=== PATIENT | male | born 1970 | race Caucasian/White ===

== ENCOUNTER 2016-05-26 08:54 | Emergency (ER) | payer BC ==
[2016-05-26] MEDS ORDERED: Ondansetron INJ* 2 MG/ML VIAL IV ONE (09:10)
--- NOTE | 2016-05-26 10:09 | RAD ---
Indication: Cough, fever. 2 views of the chest including dual energy PA views demonstrate no mediastinal shift. Heart is of normal size and configuration. Nodular density is noted in the left midlung field which may represent some scarring however follow-up exam is suggested. No pleural fluid is identified. IMPRESSION: Linear density in the left midlung field likely representing some scarring. No definite pneumonia is noted.
--- NOTE | 2016-05-26 10:17 | ED ---
Influenza-Like Illness - HPI Summary HPI Summary: 45 F w/ no PMH presents with n/v/d and generalized abdominal pain for 3 days. He admits to a cough, fever, generalized body aches. Has not taken anything. no one else is sick . Denies any chest pain or SOB. - History of Current Complaint Chief Complaint: EDNauseaVomitDiarrh Time Seen by Provider: 05/26/16 09:09 - Allergy/Home Medications Allergies/Adverse Reactions: Allergies Allergy/AdvReac Type Severity Reaction Status Date / Time No Known Allergies Allergy Verified 05/26/16 09:03 PMH/Surg Hx/FS Hx/Imm Hx Endocrine/Hematology History: Denies: Hx Diabetes Cardiovascular History: Denies: Hx Hypertension, Hx Pacemaker/ICD GI History: Reports: Other GI Disorders History: Denies: Hx Dialysis, Hx Renal Disease Musculoskeletal History: Reports: Hx Arthritis, Hx Back Problems Sensory History: Denies: Hx Hearing Aid Psychiatric History: Denies: Hx Panic Disorder Infectious Disease History: No Infectious Disease History: Denies: Traveled Outside the [place] in Last 30 Days - Family History Known Family History: Negative: Cardiac Disease - Social History Alcohol Use: Daily Alcohol Amount: 2 beers/day on average Substance Use Type: Reports: None Smoking Status (MU): Never Smoked Tobacco Review of Systems Positive: Fever Negative: Chest Pain Negative: Shortness Of Breath Positive: Abdominal Pain, Vomiting, Diarrhea, Nausea Negative: dysuria All Other Systems Reviewed And Are Negative: Yes Physical Exam Triage Information Reviewed: Yes Vital Signs On Initial Exam: Initial Vitals Temp Pulse Resp BP Pulse Ox 98.3 F 101 18 132/90 100 05/26/16 08:57 05/26/16 08:57 05/26/16 08:57 05/26/16 08:57 05/26/16 08:57 Vital Signs Reviewed: Yes Appearance: Positive: Ill-Appearing Skin: Positive: Warm, Dry Head/Face: Positive: Normal Head/Face Inspection Eyes: Positive: Normal, Conjunctiva Clear ENT: Positive: Normal ENT inspection, Pharynx normal, Nasal congestion, TMs normal Neck: Positive: Supple, Nontender, No Lymphadenopathy Respiratory/Lung Sounds: Positive: Clear to Auscultation, Breath Sounds Present Cardiovascular: Positive: Normal, RRR Abdomen Description: Positive: Nontender, Soft Bowel Sounds: Positive: Present Diagnostics - Vital Signs Vital Signs Temp Pulse Resp BP Pulse Ox 05/26/16 08:57 98.3 F 101 18 132/90 100 - Laboratory Result Diagrams: 05/26/16 10:15 05/26/16 10:15 Lab Statement: Any lab studies that have been ordered have been reviewed, and results considered in the medical decision making process. - Radiology chest Xray Interpretation: No Acute Changes Radiology Interpretation Completed By: Radiologist Flu Symptom Course/Dx - Course Course Of Treatment: 45M presents with flu like symptoms, no fever currently, PE normal, labs normal, feeling better after fluid, flu and strept normal, chest xray normal, will give zofran to go, patient is feeling better and would like to go home, patient agrees with plan - Diagnoses Differential Diagnosis/HQI/PQRI: Positive: Bronchitis, Influenza, Upper Respiratory Infection, Other - gastroenteritis Provider Diagnoses: Nausea and vomiting, Cough Discharge - Discharge Plan Condition: Good Disposition: HOME Prescriptions: Ondansetron ODT TAB* [Zofran Odt TAB*] 4 mg PO Q6H PRN #16 tab.odt PRN Reason: Nausea Patient Education Materials: Acute Nausea and Vomiting (ED) Referrals: Kaley Tijerina MD [Primary Care Provider] - Additional Instructions: Can take Zofran every 6 hours as needed for nausea Drink small amounts of fluid as tolerated When able to eat follow BRAT diet: Bananas, rice, applesauce, toast Take ibuprofen or Tylenol for pain as needed every 6 hours Follow up with primary within 5 days Return to ED if develop fever that does not respond to Tylenol or ibuprofen, severe abdominal pain, or any new or worsening symptoms
[2016-05-26] MEDS: NS 0.9% 1000 ML* 2,000 ML IV ONE ×2 (10:20→11:03)
[2016-05-26 10:36] LABS: Hematocrit 47 % (42-52); Hemoglobin 16.2 g/dl (14.0-18.0); Mean Corpuscular HGB Conc 34 g/dl (31-36); Mean Corpuscular Hemoglobin 32 pg (27-31); Mean Corpuscular Volume 93 fL (80-94); Mean Platelet Volume 9 um3 (7.4-10.4); Red Blood Count 5.11 10^6/ul (4.0-5.4); Red Cell Distribution Width 13 % (10.5-15); White Blood Count 5.2 10^3/ul (3.5-10.8)
[2016-05-26 10:51] LABS: Albumin 4.2 g/dL (3.2-5.2); BUN/Creatinine Ratio 13.2 (8-20); Calcium 9.5 mg/dL (8.6-10.3); EGFR African American 163.7 (>60); EGFR Non-African American 127.3 (>60); Potassium 3.6 mmol/L (3.5-5.0); Total Bilirubin 3.2 mg/dL (0.2-1.0); Total Protein 8.2 g/dL (6.4-8.9)
[2016-05-26 11:28] VITALS: BP 143/80
== END 2016-05-26 11:36 | disposition home or self-care (01) ==
LOC: ED 08:54
DX: R11.2 Nausea with vomiting, unspecified (principal); R05 Cough
CPT/HCPCS: 36415; 71020; 80053; 83605; 85025; 86141; 87502; 87651; 96360; 96374; 99283; J2405

== ENCOUNTER 2016-11-20 08:40 | Emergency (ER) | payer BC ==
--- NOTE | 2016-11-20 10:42 | RAD ---
Indication: Shortness of breath, chest pain. Single frontal view of the chest performed at 1018 hours was reviewed. Comparison is made with previous exam dated June 25, 2016. No mediastinal shift is noted. Heart is of normal size and configuration. Lung sher appear clear. IMPRESSION: NO ACTIVE CARDIOPULMONARY DISEASE IS NOTED.
[2016-11-20 10:50] LABS: Albumin 4.2 g/dL (3.2-5.2); Calcium 9.4 mg/dL (8.6-10.3); EGFR African American 95.5 (>60); EGFR Non-African American 74.3 (>60); Globulin 3.5 g/dL (2-4); Potassium 5.4 mmol/L (3.5-5.0); Total Bilirubin 2.7 mg/dL (0.2-1.0); Total Protein 7.7 g/dL (6.4-8.9); Troponin I 0.01 ng/mL (<0.04)
[2016-11-20 11:03] LABS: BUN/Creatinine Ratio 6.5 (8-20)
[2016-11-20 11:26] LABS: Hematocrit 47 % (42-52); Hemoglobin 16.7 g/dl (14.0-18.0); Mean Corpuscular HGB Conc 36 g/dl (31-36); Mean Corpuscular Hemoglobin 34 pg (27-31); Mean Corpuscular Volume 95 fL (80-94); Mean Platelet Volume 11 um3 (7.4-10.4); Red Blood Count 4.93 10^6/ul (4.0-5.4); Red Cell Distribution Width 13 % (10.5-15); White Blood Count 6.5 10^3/ul (3.5-10.8)
[2016-11-20 11:34] LABS: Comments Flag Yes
[2016-11-20 11:35] LABS: Add Diff/Slide Review? Slide Review Added
--- NOTE | 2016-11-20 13:35 | RAD ---
Indication: Chest pain and elevated liver function tests. Comparison: No relevant prior exams available on the [facility] PACS for comparison. Technique: RIGHT upper quadrant ultrasound. Report: Appropriate direction flow documented in the portal and hepatic veins. 19 cm liver is severely increased in echogenicity. Negative for focal hepatic lesions. Negative for intrahepatic biliary dilatation. 4 mm common bile duct. Adequately distended gallbladder with normal 2 mm wall is without pathologic finding. Negative for sonographic Woods's sign. The pancreatic tail is partially obscured due to bowel gas with the visualized pancreas is echogenic favoring partial fatty replacement. Negative for ascites. 11.1 x 4.5 x 5.3 cm RIGHT kidney is unremarkable. IMPRESSION: 1. Mildly enlarged liver with hepatosteatosis. 2. No evidence for gallbladder pathology.
[2016-11-20 13:42] LABS: BUN/Creatinine Ratio 7.7 (8-20); Calcium 9.1 mg/dL (8.6-10.3); EGFR African American 116.4 (>60); EGFR Non-African American 90.5 (>60); Potassium 4.8 mmol/L (3.5-5.0)
[2016-11-20 14:16] VITALS: BP 128/79
--- NOTE | 2016-11-20 22:06 | ED ---
Armani Mon SooYoung, scribed for Radha Esquivel MD on 11/20/16 at 1146 . Shortness of Breath - HPI Summary HPI Summary: A 46 y/o M arriving by car presents with dyspnea and CP onset last night, worsening minutes LOW VOLTAGE ELECTRICIAN. Per , pt complained of SOB, CP during the night. They got the kids ready for school this AM, then was driving pt to ED when he suddenly worsened, stopped the car and called 911, who stated that they were so close to continue on to [facility]. Associated sx: shaking, L-side numbness - pt states it feels that his left side "is ," ecchymosis on RLE from a fall occurring 5 days ago. No PMHx: asthma, anxiety, panic attacks. Pt denies daily meds. Non-smoker. Daily ETOH. No drug use. FHx: HTN, DM. - History of Current Complaint Chief Complaint: EDShortnessOfBreath Hx Obtained From: Patient, Family/Wallpaper [employer]anger - Onset/Duration: Gradual Onset, Lasting Hours, Still Present Timing: Constant Current Severity: Severe Dyspnea At: Rest Aggrevating Factors: Nothing Alleviating Factors: Nothing Associated Signs & Symptoms: Chest Pain Unrelated to Cough - Risk Factors Pulmonary Embolism: Smoking Cardiac: Smoking Tuberculosis: Smoking - Allergy/Home Medications Allergies/Adverse Reactions: Allergies Allergy/AdvReac Type Severity Reaction Status Date / Time No Known Allergies Allergy Verified 05/26/16 09:03 PMH/Surg Hx/FS Hx/Imm Hx Previously Healthy: No Endocrine/Hematology History: Denies: Hx Diabetes Cardiovascular History: Denies: Hx Hypertension, Hx Pacemaker/ICD Respiratory History: Denies: Hx Asthma History: Denies: Hx Dialysis, Hx Renal Disease Musculoskeletal History: Reports: Hx Arthritis, Hx Back Problems Sensory History: Denies: Hx Hearing Aid Psychiatric History: Denies: Hx Panic Disorder - Surgical History Surgery Procedure, Year, and Place: none Infectious Disease History: No Infectious Disease History: Denies: Traveled Outside the [place] in Last 30 Days - Family History Known Family History: Positive: Hypertension, Diabetes Negative: Cardiac Disease - Social History Occupation: Unemployed Lives: With Family Alcohol Use: Daily Alcohol Amount: 6 beers/day on average Hx Substance Use: No Substance Use Type: Reports: None Hx Tobacco Use: No Smoking Status (MU): Never Smoked Tobacco Review of Systems Negative: Fever Positive: Chest Pain Positive: Shortness Of Breath - dyspnea Gastrointestinal: Negative Genitourinary: Negative Positive: Bruising - RLE Neurological: Other - pos: diffuse shaking Positive: Numbness - L-sided Positive: Anxious All Other Systems Reviewed And Are Negative: Yes Physical Exam Triage Information Reviewed: Yes Vital Signs On Initial Exam: Initial Vitals Temp Pulse Resp BP Pulse Ox 98.2 F 103 40 115/79 100 11/20/16 08:44 11/20/16 08:44 11/20/16 08:44 11/20/16 08:44 11/20/16 08:44 Vital Signs Reviewed: Yes Appearance: Positive: No Pain Distress, Well-Nourished, Ill-Appearing - hyperventilating Skin: Positive: Warm, Skin Color Reflects Adequate Perfusion Head/Face: Positive: Normal Head/Face Inspection Eyes: Positive: Conjunctiva Clear ENT: Positive: Normal ENT inspection Neck: Positive: Supple, Nontender, No Lymphadenopathy Respiratory/Lung Sounds: Positive: Clear to Auscultation, Breath Sounds Present , Unable to speak in full sentences, Other - hyperventilating. Negative: Wheezes Cardiovascular: Positive: RRR, Other - pulses normal, brisk capillary refill. Negative: Murmur Abdomen Description: Positive: Nontender, No Organomegaly, Soft. Negative: Distended, Guarding Musculoskeletal: Positive: Strength/ROM Intact. Negative: Deysi Sign Left, Deysi Sign Right, Edema Left, Edema Right Neurological: Positive: Sensory/Motor Intact, Alert, Oriented to Person Place, Time, Facial Symmetry, Speech Normal Psychiatric: Positive: Anxious - Padmini Coma Scale Coma Scale Total: 15 Diagnostics - Vital Signs Vital Signs Temp Pulse Resp BP Pulse Ox 11/20/16 08:44 98.2 F 103 40 115/79 100 - Laboratory Lab Results: Lab Results 11/20/16 11/20/16 11/20/16 Range/Units 08:46 08:46 08:46 WBC 6.5 (3.5-10.8) 10^3/ul RBC 4.93 (4.0-5.4) 10^6/ul Hgb 16.7 (14.0-18.0) g/dl Hct 47 (42-52) % MCV 95 H (80-94) fL MCH 34 H (27-31) pg MCHC 36 (31-36) g/dl RDW 13 (10.5-15) % Plt Count 258 (150-450) 10^3/ul MPV 11 H (7.4-10.4) um3 Neut % (Auto) 54.6 (38-83) % Lymph % (Auto) 32.4 (25-47) % [place] % (Auto) 11.0 H (1-9) % Eos % (Auto) 0.6 (0-6) % Baso % (Auto) 1.4 (0-2) % Absolute Neuts (auto) 3.5 (1.5-7.7) 10^3/ul Absolute Lymphs (auto) 2.1 (1.0-4.8) 10^3/ul Absolute Monos (auto) 0.7 (0-0.8) 10^3/ul Absolute Eos (auto) 0 (0-0.6) 10^3/ul Absolute Basos (auto) 0.1 (0-0.2) 10^3/ul Absolute Nucleated RBC 0.05 10^3/ul Nucleated RBC % 0.8 INR (Anticoag Therapy) 0.84 L (0.89-1.11) APTT 34.2 (26.0-36.3) seconds D-Dimer, Quantitative < 200 (Less Than 230) ng/mL Sodium 124 L (133-145) mmol/L Potassium 5.4 H (3.5-5.0) mmol/L Chloride 92 L (101-111) mmol/L Carbon Dioxide 15 L (22-32) mmol/L Anion Gap 17 H (2-11) mmol/L BUN 7 (6-24) mg/dL Creatinine 1.08 (0.67-1.17) mg/dL Est GFR ( Amer) 95.5 (>60) Est GFR (Non-Af Amer) 74.3 (>60) BUN/Creatinine Ratio 6.5 L (8-20) Glucose 119 H (70-100) mg/dL Calcium 9.4 (8.6-10.3) mg/dL Total Bilirubin 2.70 H (0.2-1.0) mg/dL AST 163 H (13-39) U/L ALT 25 (7-52) U/L Alkaline Phosphatase 99 (34-104) U/L Total Creatine Kinase 349 H (10-223) U/L CK-MB (CK-2) 4.7 (0.6-6.3) ng/mL Troponin I 0.01 (<0.04) ng/mL B-Natriuretic Peptide ( - 100) pg/mL Total Protein 7.7 (6.4-8.9) g/dL Albumin 4.2 (3.2-5.2) g/dL Globulin 3.5 (2-4) g/dL Albumin/Globulin Ratio 1.2 (1-3) 11/20/16 11/20/16 Range/Units 08:46 12:30 WBC (3.5-10.8) 10^3/ul RBC (4.0-5.4) 10^6/ul Hgb (14.0-18.0) g/dl Hct (42-52) % MCV (80-94) fL MCH (27-31) pg MCHC (31-36) g/dl RDW (10.5-15) % Plt Count (150-450) 10^3/ul MPV (7.4-10.4) um3 Neut % (Auto) (38-83) % Lymph % (Auto) (25-47) % [place] % (Auto) (1-9) % Eos % (Auto) (0-6) % Baso % (Auto) (0-2) % Absolute Neuts (auto) (1.5-7.7) 10^3/ul Absolute Lymphs (auto) (1.0-4.8) 10^3/ul Absolute Monos (auto) (0-0.8) 10^3/ul Absolute Eos (auto) (0-0.6) 10^3/ul Absolute Basos (auto) (0-0.2) 10^3/ul Absolute Nucleated RBC 10^3/ul Nucleated RBC % INR (Anticoag Therapy) (0.89-1.11) APTT (26.0-36.3) seconds D-Dimer, Quantitative (Less Than 230) ng/mL Sodium 127 L (133-145) mmol/L Potassium 4.8 (3.5-5.0) mmol/L Chloride 93 L (101-111) mmol/L Carbon Dioxide 23 (22-32) mmol/L Anion Gap 11 (2-11) mmol/L BUN 7 (6-24) mg/dL Creatinine 0.91 (0.67-1.17) mg/dL Est GFR ( Amer) 116.4 (>60) Est GFR (Non-Af Amer) 90.5 (>60) BUN/Creatinine Ratio 7.7 L (8-20) Glucose 104 H (70-100) mg/dL Calcium 9.1 (8.6-10.3) mg/dL Total Bilirubin (0.2-1.0) mg/dL AST (13-39) U/L ALT (7-52) U/L Alkaline Phosphatase (34-104) U/L Total Creatine Kinase (10-223) U/L CK-MB (CK-2) (0.6-6.3) ng/mL Troponin I (<0.04) ng/mL B-Natriuretic Peptide 21 ( - 100) pg/mL Total Protein (6.4-8.9) g/dL Albumin (3.2-5.2) g/dL Globulin (2-4) g/dL Albumin/Globulin Ratio (1-3) Result Diagrams: 11/20/16 08:46 11/20/16 12:30 Lab Statement: Any lab studies that have been ordered have been reviewed, and results considered in the medical decision making process. - Radiology CXR Xray Interpretation: No Acute Changes - IMPRESSION: No active cardiopulmonary dz is noted. Radiology Interpretation Completed By: Radiologist - Ultrasound No standard instances Ultrasound Interpretation: Positive (See Comments) - GALLBLADDER U/S, IMPRESSION : 1. Mildly enlarged liver with hepatosteatosis. 2. No evidence for gallbladder pathology. Ultrasound Interpretation Completed By: Radiologist - EKG 0842 Cardiac Rate: Tachycardia - 107 bpm EKG Rhythm: Sinus Tachycardia EKG Interpretation: nml AV, prolonged IVCD, RBBB, nml QTC, neg axis -30. 1052 Cardiac Rate: NL - 108 bpm EKG Rhythm: Sinus Tachycardia EKG Interpretation: nml AV, borderline prolonged IVCD w/ incomplete RBBB, nml QTC, neg axis -5 EKG Comparison: No Significant Change - from EKG performed today at 0842 Re-Evaluation - Re-Evaluation 1 Re-Evaluation Time: 14:11 Change: Improved Comment: Discussing results with pt. Pt has no pain, no SOB. Discussed reducing ETOH intake due to elevated bilirubin and LFT's and fatty liver with hepatomegaly. Pt voiced understanding. Course/Dx - Course Course Of Treatment: Allergies noted. Medications reviewed. Normal BP reading and no follow-up instructions required. Pt is a 46 y/o M presenting with dyspnea and CP initial onset last night, worsening minutes LOW VOLTAGE ELECTRICIAN. was driving pt to ED this AM when he suddenly worsened, called 911, who stated that they were so close to continue on to [facility]. Associated sx: shaking, L-side numbness - pt states it feels that his left side "is ," ecchymosis on RLE from a fall occurring 5 days ago. No PMHx: asthma, anxiety, panic attacks. Pt denies daily meds. Non-smoker. Daily ETOH. No drug use. FHx: HTN, DM. Lab results show trop is 0.01. Ddimer is WNL. CXR is nml. EKG is sinus tachy at 107 bpm, with nml AV, prolonged IVCD, RBBB, nml QTC, neg axis -30. Gallbladder U /S shows "1. Mildly enlarged liver with hepatosteatosis. 2. No evidence for gallbladder pathology. " Second EKG is sinus tachy at 108 bpm, nml AV, borderline prolonged IVCD with incomplete RBBB, nml QTC, neg axis -5, no acute changes, no significant changes from prior EKG performed today. Will D/C home, f/u with PCP. - Diagnoses Differential Diagnosis/HQI/PQRI: Positive: VT, Pneumonia, Pulmonary Embolism, Other - hyperventilation Provider Diagnoses: Hyperventilation, Hyponatremia, Hepatomegaly, Hepatic steatosis, Elevated bilirubin, Chest pain - Critical Care Time Critical Care Time: 30-74 min - 30 minutes Discharge - Discharge Plan Condition: Stable Disposition: HOME Prescriptions: LORazepam TAB(*) [Ativan 0.5 MG TAB (*)] 0.5 mg PO Q8H PRN #9 tab MDD 3 PRN Reason: Agitation Patient Education Materials: Hyperventilation (ED), Hyponatremia (ED), Non- Alcoholic Fatty Liver Disease (ED), Jaundice (ED) Referrals: Kaley Tijerina MD [Primary Care Provider] - 3 Days Additional Instructions: Your liver is enlarged and has fatty changes and your liver function tests are abnormal. You will need to stop all alcohol. Also do not take acetaminophen. The tests today did not show any heart attack or any blood clot to the lung. Your serum sodium is also low. We have given you a copy of all of your labs and the ultrasound. You need to follow up with your doctor as soon as possible for continued evaluation of all of these abnormalities, but you do not have an emergency condition at this time. Return to the ER if you have any new or worsening symptoms. The documentation as recorded by the Armani jimenez SooYoung accurately reflects the service I personally performed and the decisions made by me, Radha Esquivel MD.
== END 2016-11-20 14:18 | disposition home or self-care (01) ==
LOC: ED 08:40
DX: R07.9 Chest pain, unspecified (principal); R06.4 Hyperventilation; E87.1 Hypo-osmolality and hyponatremia; R16.0 Hepatomegaly, not elsewhere classified; R06.00 Dyspnea, unspecified; F41.9 Anxiety disorder, unspecified; N28.89 Other specified disorders of kidney and ureter
CPT/HCPCS: 36415; 71010; 76705; 80048; 80053; 82550; 82553; 83880; 84484; 85025; 85379; 85610; 85730; 93005; 99282

== ENCOUNTER 2018-10-03 13:59 | Emergency (ER) | payer BC ==
[2018-10-03 14:11] VITALS: BP 152/109
[2018-10-03] MEDS ORDERED: Ketorolac INJ* 30 MG/ML 1 ML VIAL IM ONE (14:15)
--- NOTE | 2018-10-03 14:21 | UC ---
Lower Extremity/Ankle HPI - HPI Summary HPI Summary: 47-year-old male who injured his left foot last evening as he was coming down the stairs he is not 100% sure how he injured it but he has bruising and pain to the dorsum of his left foot with pain to the fifth fourth and third toes. The fourth toe is obviously it or dislocated or fractured. - History of Current Complaint Chief Complaint: UCLowerExtremity Stated Complaint: LT FOOT INJURY Time Seen by Provider: 10/03/18 14:13 Hx Obtained From: Patient Onset/Duration: Sudden Onset Severity Initially: Moderate Severity Currently: Moderate Pain Intensity: 9 Aggravating Factor(s): Standing, Ambulation Alleviating Factor(s): Nothing Able to Bear Weight: No - able to partially bear weight on his heel but not on his entire foot. - Allergies/Home Medications Allergies/Adverse Reactions: Allergies Allergy/AdvReac Type Severity Reaction Status Date / Time No Known Allergies Allergy Verified 10/03/18 14:11 PMH/Surg Hx/FS Hx/Imm Hx Previously Healthy: Yes - Surgical History Surgical History: None Surgery Procedure, Year, and Place: none - Family History Known Family History: Positive: Hypertension, Diabetes Negative: Cardiac Disease - Social History Alcohol Use: Occasionally Alcohol Amount: 6 beers/day on average Substance Use Type: None Smoking Status (MU): Never Smoked Tobacco Review of Systems All Other Systems Reviewed And Are Negative: Yes Skin: Positive: Bruising - Bruising to dorsum of left foot as well as 3 of his toes with mild swelling. Motor: Positive: Decreased ROM - Unable to put for extensor range of motion. Neurovascular: Positive: Decreased Sensation - Decreased sensation to the second , third, fourth toes. Musculoskeletal: Positive: Decreased ROM, Other: - Fourth toe is angulated Neurological: Positive: Numbness - Numbness to 2nd, 3rd and 4th toes Is Patient Immunocompromised?: No Physical Exam Triage Information Reviewed: Yes Appearance: Well-Appearing, Well-Nourished, Pain Distress Vital Signs: Initial Vital Signs Temp 98.2 F 10/03/18 14:05 Pulse 104 10/03/18 14:05 Resp 18 10/03/18 14:05 BP 152/109 10/03/18 14:05 Pulse Ox 97 10/03/18 14:05 Vital Signs Reviewed: Yes Musculoskeletal: Positive: ROM Limited @ - Patient states he cannot put his second, third or fourth toes range of motion because of pain. The fourth toe is to flank related. Neurological: Positive: Alert Skin: Positive: Other - Bruise to the dorsum of left foot. Lower Extremity Course/Dx - Course Course Of Treatment: Left foot: FINDINGS: BONE DENSITY: Normal. BONES: There are angulated fractures of the bases of the proximal phalanges of the fourth and fifth digits. JOINTS: There is no arthropathy. ALIGNMENT: There is no dislocation. SOFT TISSUES: Unremarkable. OTHER FINDINGS: None. IMPRESSION: ANGULATED FRACTURES OF THE PROXIMAL PHALANGES OF THE FOURTH AND FIFTH DIGITS The patient was given Toradol 30 mg IM here for pain. I was able to speak with Dr. Hilton's office (orthopedist) and they will be able to see him immediately from here. The patient was discharged via wheelchair to his 's care to drive to the office immediately. - Differential Dx/Diagnosis Provider Diagnosis: Fracture of multiple toes Discharge - Sign-Out/Discharge Documenting (check all that apply): Patient Departure All imaging exams completed and their final reports reviewed: Yes - Discharge Plan Condition: Fair Disposition: HOME Referrals: Elza Hilton MD [Medical Doctor] - (Go directly to her office now) Lisa Yeboah NP [Primary Care Provider] - Additional Instructions: Go directly to Dr. Hilton's office from here. - Billing Disposition and Condition Condition: FAIR Disposition: Home
== END 2018-10-03 15:01 | disposition home or self-care (01) ==
LOC: UCEAST 13:59
DX: S92.512A Displaced fracture of proximal phalanx of left lesser toe(s), initial encounter for closed fracture (principal); W10.9XXA Fall (on) (from) unspecified stairs and steps, initial encounter; Y92.9 Unspecified place or not applicable
CPT/HCPCS: 96372; 99211; G0463; J1885

== ENCOUNTER 2019-06-13 10:38 | Emergency (ER) | payer BC ==
[2019-06-13 10:47] VITALS: BP 132/93
--- NOTE | 2019-06-13 11:16 | UC ---
Knee Pain HPI - HPI Summary HPI Summary: 48-year-old male presents with complaints of left knee pain. States 2 days ago he slipped on the ice and fell directly onto his left knee. Complains of pain, swelling, and bruising to the medial aspect of the knee. Reports he was able to walk and bear weight after the injury however pain has progressively worsened over the last 2 days and he is unable to tolerate much weight on the knee at all at this point. Pain worsens with full extension. No alleviating factors however has not taken any [id number] analgesics. Denies any numbness or tingling. - History of Current Complaint Chief Complaint: UCLowerExtremity Stated Complaint: LEFT KNEE INJURY Time Seen by Provider: 06/13/19 10:51 Hx Obtained From: Patient Pain Intensity: 10 - Allergies/Home Medications Allergies/Adverse Reactions: Allergies Allergy/AdvReac Type Severity Reaction Status Date / Time No Known Allergies Allergy Verified 06/13/19 10:48 Home Medications: Home Medications NK [No Home Medications Reported] 07/14/18 [History Confirmed 06/13/19] PMH/Surg Hx/FS Hx/Imm Hx Previously Healthy: Yes - Denies significant PMH - Surgical History Surgical History: None Surgery Procedure, Year, and Place: none - Family History Known Family History: Positive: Hypertension, Diabetes - Social History Occupation: Employed Full-time Lives: With Family Alcohol Use: Occasionally Alcohol Amount: 6 beers/day on average Substance Use Type: None Smoking Status (MU): Never Smoked Tobacco Review of Systems All Other Systems Reviewed And Are Negative: Yes Constitutional: Positive: Negative Skin: Positive: Bruising Respiratory: Positive: Negative Cardiovascular: Positive: Negative Gastrointestinal: Positive: Negative Genitourinary: Positive: Negative Motor: Negative: Weakness Neurovascular: Negative: Decreased Sensation Musculoskeletal: Positive: Arthralgia - See HPI, Decreased ROM, Edema Neurological/Mental Status: Positive: Negative Is Patient Immunocompromised?: No Physical Exam - Summary Physical Exam Summary: GENERAL APPEARANCE: Well developed, well nourished, alert and cooperative. Patient appears uncomfortable but is in no acute distress. CARDIAC: Normal S1 and S2. No S3, S4 or murmurs. Rhythm is regular. There is no peripheral edema, cyanosis or pallor. Extremities are warm and well perfused. Capillary refill is less than 2 seconds. Peripheral pulses intact. LUNGS: Clear to auscultation without rales, rhonchi, wheezing or diminished breath sounds. ABDOMEN: Positive bowel sounds. Soft, nondistended, nontender. No guarding or rebound. No masses or hepatosplenomegally. MUSKULOSKELETAL: Normal muscular development. EXTREMITIES: Tenderness with moderate ecchymosis and edema to the medial aspect of the left knee. Unable to fully extend the knee due to pain. Circulation and sensation intact. SKIN: Skin normal color, texture and turgor with no lesions or eruptions. Triage Information Reviewed: Yes Vital Signs: Initial Vital Signs Temp 99.2 F 06/13/19 10:45 Pulse 110 06/13/19 10:45 Resp 20 06/13/19 10:45 BP 132/93 06/13/19 10:45 Pulse Ox 100 06/13/19 10:45 Vital Signs Reviewed: Yes Diagnostics - Radiology No standard instances Radiology Interpretation Completed By: Radiologist Summary of Radiographic Findings: Order Information: KNEE LEFT 4+ VWS INDICATION : Left knee injury. TECHNIQUE: 4 views of the left knee were obtained. FINDINGS: The bones are normal alignment. There is a joint effusion present. No fracture is seen. Joint spaces appear maintained. IMPRESSION: JOINT EFFUSION, NO FRACTURE IS SEEN. Knee Pain Course/Dx - Course Course Of Treatment: 48-year-old male presents with complaints of left knee pain. States 2 days ago he slipped on the ice and fell directly onto his left knee. Complains of pain, swelling, and bruising to the medial aspect of the knee. Reports he was able to walk and bear weight after the injury however pain has progressively worsened over the last 2 days and he is unable to tolerate much weight on the knee at all at this point. Pain worsens with full extension. No alleviating factors however has not taken any [id number] analgesics. Denies any numbness or tingling. Mildly hypertensive and tachycardic otherwise vital signs stable. Patient had tenderness with moderate ecchymosis and edema to the medial aspect of the left knee. He was unable to fully extend the knee due to pain. Circulation and sensation was intact. X-ray showed joint effusion without fracture. Patient was placed in an BISI wrap by the RN and provided crutches with instruction. Have recommended conservative treatment including OTC analgesics, RICE, and modified weight bearing. He is to follow up with orthopedic surgery in 3-5 days. Anticipatory guidance and warning symptoms reviewed with patient. Verbalizes understanding and agrees with POC. - Differential Dx/Diagnosis Differential Diagnosis/HQI/PQRI: Contusion, Fracture (Closed), Internal Derangement Of Knee, Sprain Provider Diagnosis: Left knee injury Discharge ED - Sign-Out/Discharge Documenting (check all that apply): Patient Departure All imaging exams completed and their final reports reviewed: Yes - Discharge Plan Condition: Stable Disposition: HOME Patient Education Materials: Knee Pain (ED) Referrals: Lisa Yeboah NP [Primary Care Provider] - Elza Hilton MD [Medical Doctor] - 3 Days (Call for appointment.) Additional Instructions: The x-ray performed in the clinic today showed no evidence of a fracture. Rest the knee as much as possible. You may walk and bear weight as tolerated. Use the crutches provided for support. Use the BISI wrap that was applied in the clinic or use a compression sleeve to help manage the swelling. Apply ice to the affected area for 15-20 minutes at least 4 times a day to help with the pain and swelling. Elevate the leg to help reduce swelling. Take acetaminophen (Tylenol) or ibuprofen (Advil, Motrin) according to directions as needed for pain. Follow up with orthopedic surgery in 3-5 days especially if symptoms do not improve. Call for appointment. Seek immediate medical attention if you have severe pain not managed with pain medication, you are unable to walk or bear any weight, develop numbness or tingling in the leg, foot, or toes, or have any worsening of symptoms. - Billing Disposition and Condition Condition: STABLE Disposition: Home
== END 2019-06-13 12:20 | disposition home or self-care (01) ==
LOC: UCEAST 10:38
DX: S89.92XA Unspecified injury of left lower leg, initial encounter (principal); M25.462 Effusion, left knee; W00.0XXA Fall on same level due to ice and snow, initial encounter; Y92.9 Unspecified place or not applicable
CPT/HCPCS: 99213; G0463

== ENCOUNTER 2022-03-22 13:14 | Inpatient (IN) ==
[2022-03-22 15:43] LABS: ABS Basophils 0.1 10^3/ul (0-0.2); ABS Eosinophils 0.1 10^3/ul (0-0.6); ABS Lymphocytes 0.6 10^3/ul (1.0-4.8); ABS Monocytes 0.4 10^3/ul (0-0.8); ABS Neutrophils 5.9 10^3/ul (1.5-7.7); Eosinophil % 1.8 %; Hematocrit 35 % (42-52); Hemoglobin 11.9 g/dL (14.0-18.0); Mean Corpuscular HGB Conc 34 g/dL (31-36); Mean Corpuscular Hemoglobin 32 pg (27-31); Mean Corpuscular Volume 95 fL (80-94); Mean Platelet Volume 8.7 fL (7.4-10.4); Nucleated Red Blood Cells % 0.1; Platelet Count 120 10^3/uL (150-450); Red Blood Count 3.68 10^6 /uL (4.18-5.48); Red Cell Distribution Width 16 % (10-15); White Blood Count 7.1 10^3/uL (3.5-10.8)
[2022-03-22 16:16] LABS: Albumin 3.1 g/dL (3.2-5.2); Calcium 8.2 mg/dL (8.6-10.3); Globulin 3.1 g/dL (2-4); Potassium 3.7 mmol/L (3.5-5.0); Total Protein 6.2 g/dL (6.4-8.9); eGFR CKD-EPI 99.4 (>60)
[2022-03-22 16:18] LABS: INR 1.08 (0.89-1.11)
[2022-03-22 16:40] LABS: Total Bilirubin 13.2 mg/dL (0.2-1.0)
[2022-03-22] MEDS ORDERED: Iohexol 350 (CONTRAST) 500 ML MDV IV ONE (16:47)
[2022-03-22 17:37] LABS: Direct Bilirubin 6.1 mg/dL (0.03-0.18); Indirect Bilirubin 7.1 mg/dL (0.3-1.0)
[2022-03-22] MEDS ORDERED: Thiamine 100 MG/ML 2 ml VIAL 500 MG in NS 0.9% 250 ml 250 ML IV ONE (18:16)
[2022-03-22] MEDS ORDERED: Potassium Chloride LIQUID 20 MEQ/15 ML LIQUID PO ONE (18:17)
[2022-03-22 18:36] LABS: Calcium 7.8 mg/dL (8.6-10.3); Potassium 3.6 mmol/L (3.5-5.0); eGFR CKD-EPI 103.3 (>60)
[2022-03-22] MEDS: cefTRIAXone 1 gm/50 mL D5W 1 GM/50 ML BAG IV SCH (18:41)
[2022-03-22 19:12] LABS: Magnesium 2.2 mg/dL (1.9-2.7)
[2022-03-22 19:15] LABS: Urine Chloride Concentration < 22 mmol/L; Urine Potassium Concentration 24.1 mmol/L; Urine Sodium Concentration < 18 mmol/L
[2022-03-22 19:27] LABS: Urine Specific Gravity > 1.060 (1.002-1.030)
[2022-03-22 19:28] LABS: Urine Appearance Clear; Urine Bacteria Absent (Absent); Urine Bilirubin Negative (Negative); Urine Blood 1+ (Negative); Urine Color Amber; Urine Glucose Negative (Negative); Urine Ketones Negative (Negative); Urine Nitrite Negative (Negative); Urine Protein Negative (Negative); Urine Red Blood Cell Trace(0-2/hpf) (Absent); Urine Squamous Epithelial Cell Present (Absent); Urine Urobilinogen Positive (Negative); Urine White Blood Cell Absent (Absent)
[2022-03-22] MEDS ORDERED: SODIUM CHLORIDE 3% IV ONE ×2 (19:30→23:26)
[2022-03-22] MEDS ORDERED: HYPERTONIC IV ONE ×2 (19:30→23:26)
[2022-03-22 19:51] LABS: Osmolality Serum 259 mOsm/kg (275-295)
[2022-03-22 19:52] LABS: Urine Osmo 571 mOsm/kg (150-1150)
[2022-03-22 20:35] LABS: Hepatitis B Surface Antigen Nonreactive (Nonreactive)
[2022-03-22 20:40] LABS: Hepatitis A Ab IgM Negative (Negative); Hepatitis B Core IgM Nonreactive (Nonreactive)
[2022-03-22 20:52] LABS: Hepatitis C Antibody Negative (Negative)
[2022-03-22] MEDS: Heparin 5000 UNITS/ML 1 mL VIAL SUBCUT SCH (22:50)
[2022-03-22 23:14] LABS: Calcium 7.6 mg/dL (8.6-10.3); Potassium 3.9 mmol/L (3.5-5.0); eGFR CKD-EPI 106.1 (>60)
[2022-03-23 02:41] LABS: Blood Urea Nitrogen 8 mg/dL (6-24); CO2 Carbon Dioxide 21 mmol/L (22-32); Calcium 7.6 mg/dL (8.6-10.3); Chloride 90 mmol/L (101-111); Glucose 117 mg/dL (70-100); Sodium 120 mmol/L (135-145); eGFR CKD-EPI 106.5 (>60)
[2022-03-23 02:48] LABS: Anion Gap 9 mmol/L (2-11)
[2022-03-23 04:55] LABS: ABS Eosinophils 0.1 10^3/ul (0-0.6); ABS Lymphocytes 0.6 10^3/ul (1.0-4.8); ABS Monocytes 0.5 10^3/ul (0-0.8); ABS Neutrophils 4.3 10^3/ul (1.5-7.7); Hematocrit 30 % (42-52); Hemoglobin 10.4 g/dL (14.0-18.0); Lymphocyte % 10.5 %; Mean Corpuscular HGB Conc 35 g/dL (31-36); Mean Corpuscular Hemoglobin 34 pg (27-31); Mean Corpuscular Volume 96 fL (80-94); Mean Platelet Volume 8.6 fL (7.4-10.4); Nucleated Red Blood Cells % 0.2; Platelet Count 114 10^3/uL (150-450); Red Blood Count 3.09 10^6 /uL (4.18-5.48); Red Cell Distribution Width 16 % (10-15); White Blood Count 5.5 10^3/uL (3.5-10.8)
[2022-03-23 05:32] LABS: Anion Gap 9 mmol/L (2-11); Blood Urea Nitrogen 7 mg/dL (6-24); CO2 Carbon Dioxide 22 mmol/L (22-32); Calcium 7.6 mg/dL (8.6-10.3); Chloride 90 mmol/L (101-111); Glucose 114 mg/dL (70-100); Magnesium 2.2 mg/dL (1.9-2.7); Phosphorus 3.1 mg/dL (2.5-5.0); Potassium 3.9 mmol/L (3.5-5.0); Sodium 121 mmol/L (135-145); eGFR CKD-EPI 106.5 (>60)
[2022-03-23 05:47] LABS: TSH Ultra Thyroid Stim Horm 28.33 mcIU/mL (0.34-5.60)
[2022-03-23 09:01] LABS: Calcium 7.7 mg/dL (8.6-10.3); Potassium 3.8 mmol/L (3.5-5.0); eGFR CKD-EPI 107.3 (>60)
[2022-03-23] MEDS: Multivitamins/Minerals TAB PO SCH (09:05)
[2022-03-23] MEDS: Pantoprazole VIAL 40 MG VIAL IV SCH (09:05)
[2022-03-23] MEDS: Heparin 5000 UNITS/ML 1 mL VIAL SUBCUT SCH ×2 (09:05→21:30)
[2022-03-23 13:39] LABS: Calcium 7.9 mg/dL (8.6-10.3); eGFR CKD-EPI 106.9 (>60)
[2022-03-23] MEDS ORDERED: NS 0.9% 1000 ml BAG 1,000 ML IV SCH ×2 (13:45→13:46)
[2022-03-23 14:26] LABS: Free T4 0.62 ng/dL (0.61-1.12)
[2022-03-23] MEDS: NS 0.9% 1000 ml BAG 1,000 ML IV SCH ×2 (14:46→17:47)
[2022-03-23 17:22] LABS: Amylase 12 U/L (29-103); Lipase < 10 U/L (11.0-82.0)
[2022-03-23] MEDS: cefTRIAXone 1 gm/50 mL D5W 1 GM/50 ML BAG IV SCH (17:46)
[2022-03-23] MEDS: Thiamine 100 MG/ML 2 ml VIAL 250 MG in NS 0.9% 100 ml BAG 100 ML IV SCH (21:15)
[2022-03-23] MEDS ORDERED: Lorazepam PYXIS KEY PRN (21:47)
[2022-03-23] MEDS: LORazepam 2 mg VIAL 1 ml IV PUSH SCH (22:26)
[2022-03-23] MEDS: Lactulose 30 ml UDC PO SCH (22:28)
[2022-03-24] MEDS: LORazepam 2 mg VIAL 1 ml IV PUSH SCH ×2 (01:39→03:37)
[2022-03-24] MEDS ORDERED: Furosemide 40 mg/4 ml IV VIAL IV SLOW PU ONE (08:34)
[2022-03-24 08:47] LABS: ABS Eosinophils 0.1 10^3/ul (0-0.6); ABS Lymphocytes 0.7 10^3/ul (1.0-4.8); ABS Monocytes 0.6 10^3/ul (0-0.8); ABS Neutrophils 3.4 10^3/ul (1.5-7.7); Eosinophil % 2.8 %; Hematocrit 30 % (42-52); Hemoglobin 10.3 g/dL (14.0-18.0); Lymphocyte % 14.9 %; Mean Corpuscular HGB Conc 35 g/dL (31-36); Mean Corpuscular Hemoglobin 34 pg (27-31); Mean Corpuscular Volume 98 fL (80-94); Mean Platelet Volume 8.8 fL (7.4-10.4); Nucleated Red Blood Cells % 0.2; Platelet Count 127 10^3/uL (150-450); Red Blood Count 3.05 10^6 /uL (4.18-5.48); Red Cell Distribution Width 16 % (10-15); White Blood Count 4.9 10^3/uL (3.5-10.8)
[2022-03-24] MEDS: Heparin 5000 UNITS/ML 1 mL VIAL SUBCUT SCH ×2 (08:56→20:46)
[2022-03-24] MEDS: Pantoprazole VIAL 40 MG VIAL IV SCH (08:56)
[2022-03-24 09:05] LABS: INR 1.02 (0.89-1.11)
[2022-03-24 09:06] LABS: Protime (Maddrey) 11.5 seconds (10.0-12.6)
[2022-03-24 09:10] LABS: PCO2 Arterial 44 mmHg (35-45); PO2 Arterial 95 mmHg (80-100)
[2022-03-24 09:27] LABS: Albumin 2.9 g/dL (3.2-5.2); Albumin/Globulin Ratio 1.1 (1-3); Calcium 7.8 mg/dL (8.6-10.3); Globulin 2.7 g/dL (2-4); Total Bilirubin 11.6 mg/dL (0.2-1.0); Total Protein 5.6 g/dL (6.4-8.9); eGFR CKD-EPI 107.7 (>60)
[2022-03-24 10:06] LABS: Total Bilirubin 11.6 mg/dL (0.2-1.0)
[2022-03-24] MEDS: Lactulose 30 ml UDC PO SCH (11:47)
[2022-03-24] MEDS: Multivitamins/Minerals TAB PO SCH (11:47)
[2022-03-24 13:30] LABS: Calcium 7.8 mg/dL (8.6-10.3); Potassium 3.4 mmol/L (3.5-5.0); eGFR CKD-EPI 105.8 (>60)
[2022-03-24] MEDS ORDERED: KCL 20 MEQ/100 ML IVPREMIX 20 MEQ/100 ML BAG IV ONE (14:24)
[2022-03-24] MEDS ORDERED: Potassium Chloride LIQUID 20 MEQ/15 ML LIQUID PO ONE (14:34)
[2022-03-24] MEDS: Lactulose 30 ml UDC NG TUBE SCH ×3 (15:03→20:46)
[2022-03-24] MEDS ORDERED: Lorazepam PYXIS KEY PRN (15:27)
[2022-03-24] MEDS ORDERED: LORazepam 2 mg VIAL 1 ml IV PUSH ONE (15:27)
[2022-03-24] MEDS ORDERED: Lorazepam PYXIS KEY ONE (15:29)
[2022-03-24] MEDS ORDERED: LORazepam 2 mg VIAL 1 ml ONE (15:30)
[2022-03-24 15:50] LABS: PCO2 Arterial 41 mmHg (35-45); PO2 Arterial 99 mmHg (80-100)
[2022-03-24 16:54] LABS: Calcium 7.8 mg/dL (8.6-10.3); Potassium 3.7 mmol/L (3.5-5.0); eGFR CKD-EPI 107.3 (>60)
[2022-03-24] MEDS ORDERED: Furosemide 40 mg/4 ml IV VIAL IV SLOW PU SCH (17:00)
[2022-03-24] MEDS: Thiamine 100 MG/ML 2 ml VIAL 250 MG in NS 0.9% 100 ml BAG 100 ML IV SCH (21:18)
[2022-03-24] MEDS: Polyethyl Glycol/Propylene Gly OPHTH.SOLN BOTH EYES PRN (23:44)
[2022-03-25 04:21] LABS: Hematocrit 28 % (42-52); Hemoglobin 9.4 g/dL (14.0-18.0); Mean Corpuscular HGB Conc 34 g/dL (31-36); Mean Corpuscular Hemoglobin 33 pg (27-31); Mean Corpuscular Volume 98 fL (80-94); Mean Platelet Volume 8.9 fL (7.4-10.4); Platelet Count 143 10^3/uL (150-450); Red Blood Count 2.87 10^6 /uL (4.18-5.48); Red Cell Distribution Width 16 % (10-15); White Blood Count 4.6 10^3/uL (3.5-10.8)
[2022-03-25 04:57] LABS: CO2 Carbon Dioxide 27 mmol/L (22-32); Calcium 7.5 mg/dL (8.6-10.3); Chloride 95 mmol/L (101-111); Magnesium 2.4 mg/dL (1.9-2.7); Sodium 128 mmol/L (135-145)
[2022-03-25 05:00] LABS: Anion Gap 6 mmol/L (2-11)
[2022-03-25 05:02] LABS: Blood Urea Nitrogen 4 mg/dL (6-24); Glucose 116 mg/dL (70-100); Stomatocytes 2+; eGFR CKD-EPI 108.5 (>60)
[2022-03-25 05:03] LABS: Basophilic Stippling 2+; Polychromasia 2+
[2022-03-25 05:09] LABS: ABS Eosinophils 0.1 10^3/ul (0-0.6); ABS Lymphocytes 0.6 10^3/ul (1.0-4.8); ABS Monocytes 0.7 10^3/ul (0-0.8); ABS Neutrophils 3.1 10^3/ul (1.5-7.7); Lymphocyte % 13.2 %; Nucleated Red Blood Cells % 0.4
[2022-03-25 05:36] LABS: Potassium, Whole Blood 4.2 mmol/L (3.4-4.5)
[2022-03-25] MEDS: Multivitamins ADULT w/MIN LIQ 15 ML UDC PO SCH (08:27)
[2022-03-25] MEDS: Heparin 5000 UNITS/ML 1 mL VIAL SUBCUT SCH ×2 (08:27→21:24)
[2022-03-25] MEDS: Lactulose 30 ml UDC NG TUBE SCH ×4 (08:27→22:32)
[2022-03-25] MEDS: Pantoprazole VIAL 40 MG VIAL IV SCH (08:27)
[2022-03-25] MEDS ORDERED: Furosemide 40 mg/4 ml IV VIAL IV ONE (10:02)
[2022-03-25] MEDS: Thiamine 100 MG/ML 2 ml VIAL 250 MG in NS 0.9% 100 ml BAG 100 ML IV SCH (22:02)
[2022-03-25] MEDS ORDERED: Lactulose 30 ml UDC NG TUBE SCH (22:23)
[2022-03-25] MEDS: RiFAXimin SUSP ORALSYR 20mg/mL FEED TUBE SCH (22:32)
[2022-03-26 05:13] LABS: Hematocrit 28 % (42-52); Hemoglobin 9.4 g/dL (14.0-18.0); Mean Corpuscular HGB Conc 33 g/dL (31-36); Mean Corpuscular Hemoglobin 33 pg (27-31); Mean Corpuscular Volume 98 fL (80-94); Mean Platelet Volume 8.6 fL (7.4-10.4); Platelet Count 174 10^3/uL (150-450); Red Blood Count 2.85 10^6 /uL (4.18-5.48); Red Cell Distribution Width 17 % (10-15); White Blood Count 4.3 10^3/uL (3.5-10.8)
[2022-03-26 05:44] LABS: Blood Urea Nitrogen 3 mg/dL (6-24); CO2 Carbon Dioxide 28 mmol/L (22-32); Calcium 8.1 mg/dL (8.6-10.3); Chloride 94 mmol/L (101-111); Glucose 117 mg/dL (70-100); Magnesium 2.2 mg/dL (1.9-2.7); Sodium 132 mmol/L (135-145); eGFR CKD-EPI 106.5 (>60)
[2022-03-26 05:57] LABS: ABS Basophils 0.1 10^3/ul (0-0.2); ABS Eosinophils 0.1 10^3/ul (0-0.6); ABS Lymphocytes 0.8 10^3/ul (1.0-4.8); ABS Monocytes 0.7 10^3/ul (0-0.8); ABS Neutrophils 2.6 10^3/ul (1.5-7.7); Eosinophil % 2.5 %; Lymphocyte % 18.7 %
[2022-03-26 06:03] LABS: Anion Gap 10 mmol/L (2-11)
[2022-03-26 06:58] LABS: Phosphorus 2.9 mg/dL (2.5-5.0); Potassium 3.4 mmol/L (3.5-5.0)
[2022-03-26] MEDS: Heparin 5000 UNITS/ML 1 mL VIAL SUBCUT SCH ×2 (08:36→20:48)
[2022-03-26] MEDS: Pantoprazole VIAL 40 MG VIAL IV SCH (08:36)
[2022-03-26] MEDS: Multivitamins ADULT w/MIN LIQ 15 ML UDC PO SCH (08:36)
[2022-03-26] MEDS: KCL 20 MEQ/100 ML IVPREMIX 20 MEQ/100 ML BAG IV SCH ×2 (08:37→11:11)
[2022-03-26] MEDS ORDERED: Furosemide 40 mg/4 ml IV VIAL IV ONE (09:58)
[2022-03-26] MEDS: Lactulose 30 ml UDC PO SCH ×3 (13:13→20:48)
[2022-03-26] MEDS: RiFAXimin SUSP ORALSYR 20mg/mL FEED TUBE SCH (14:08)
[2022-03-26] MEDS: Thiamine 100 MG/ML 2 ml VIAL 250 MG in NS 0.9% 100 ml BAG 100 ML IV SCH (20:48)
[2022-03-27 06:18] LABS: ABS Basophils 0.1 10^3/ul (0-0.2); ABS Eosinophils 0.1 10^3/ul (0-0.6); ABS Monocytes 0.6 10^3/ul (0-0.8); ABS Neutrophils 2.8 10^3/ul (1.5-7.7); Eosinophil % 2.9 %; Hematocrit 31 % (42-52); Hemoglobin 10.3 g/dL (14.0-18.0); Lymphocyte % 21.8 %; Mean Corpuscular HGB Conc 33 g/dL (31-36); Mean Corpuscular Hemoglobin 33 pg (27-31); Mean Corpuscular Volume 98 fL (80-94); Mean Platelet Volume 8.5 fL (7.4-10.4); Nucleated Red Blood Cells % 0.6; Platelet Count 212 10^3/uL (150-450); Red Blood Count 3.14 10^6 /uL (4.18-5.48); Red Cell Distribution Width 17 % (10-15); White Blood Count 4.6 10^3/uL (3.5-10.8)
[2022-03-27 06:54] LABS: Calcium 8.6 mg/dL (8.6-10.3); Magnesium 2.1 mg/dL (1.9-2.7); Potassium 3.3 mmol/L (3.5-5.0); eGFR CKD-EPI 106.5 (>60)
[2022-03-27] MEDS ORDERED: Potassium Chlor 20 meq TAB.ER PO ONE (07:47)
[2022-03-27] MEDS: Heparin 5000 UNITS/ML 1 mL VIAL SUBCUT SCH ×2 (08:37→23:30)
[2022-03-27] MEDS: Pantoprazole VIAL 40 MG VIAL IV SCH (08:37)
[2022-03-27] MEDS: Lactulose 30 ml UDC PO SCH ×4 (08:38→23:30)
[2022-03-27] MEDS: Multivitamins/Minerals TAB PO SCH (08:38)
[2022-03-27] MEDS: Polyethyl Glycol/Propylene Gly OPHTH.SOLN BOTH EYES PRN (13:46)
[2022-03-27] MEDS: Thiamine 100 MG/ML 2 ml VIAL 250 MG in NS 0.9% 100 ml BAG 100 ML IV SCH (23:29)
[2022-03-28 06:08] LABS: ABS Basophils 0.1 10^3/ul (0-0.2); ABS Eosinophils 0.2 10^3/ul (0-0.6); ABS Monocytes 0.6 10^3/ul (0-0.8); ABS Neutrophils 2.7 10^3/ul (1.5-7.7); Hematocrit 31 % (42-52); Hemoglobin 10.5 g/dL (14.0-18.0); Lymphocyte % 22.2 %; Mean Corpuscular HGB Conc 34 g/dL (31-36); Mean Corpuscular Hemoglobin 33 pg (27-31); Mean Corpuscular Volume 96 fL (80-94); Mean Platelet Volume 8.3 fL (7.4-10.4); Nucleated Red Blood Cells % 0.5; Platelet Count 233 10^3/uL (150-450); Red Blood Count 3.19 10^6 /uL (4.18-5.48); Red Cell Distribution Width 18 % (10-15); White Blood Count 4.5 10^3/uL (3.5-10.8)
[2022-03-28 06:31] LABS: Albumin 3.2 g/dL (3.2-5.2); Albumin/Globulin Ratio 1.1 (1-3); Globulin 2.9 g/dL (2-4); Magnesium 2.1 mg/dL (1.9-2.7); Potassium 3.4 mmol/L (3.5-5.0); Total Bilirubin 7.5 mg/dL (0.2-1.0); Total Protein 6.1 g/dL (6.4-8.9); eGFR CKD-EPI 108.5 (>60)
[2022-03-28] MEDS: Multivitamins/Minerals TAB PO SCH (08:43)
[2022-03-28] MEDS: Lactulose 30 ml UDC PO SCH (08:43)
[2022-03-28] MEDS: Pantoprazole VIAL 40 MG VIAL IV SCH (08:44)
[2022-03-28] MEDS: Heparin 5000 UNITS/ML 1 mL VIAL SUBCUT SCH (08:44)
[2022-03-28] MEDS ORDERED: Potassium Chlor 20 meq TAB.ER PO SCH (09:00)
[2022-03-28 11:18] VITALS: BP 105/69
[2022-03-28] MEDS ORDERED: Naltrexone INJ 380 MG IM ONE (11:47)
== END 2022-03-28 13:40 | disposition home health service (06) | DRG 425 ==
LOC: ED 13:14 → EDHOLD 18:13 → SUATTDRO 18:13 → ICU 21:20 → MED 03-23 16:51 → ICU 03-24 09:51 → MED 03-26 12:25
PROVIDERS: ADMIT Internal Medicine; ATTEND Student in an Organized Health Care Education/Training Program